=== PATIENT | female | born 1940 | race Caucasian/White ===

== ENCOUNTER → 2016-08-15 | Outpatient (CLI) | payer OTHER ==
[~2016-08-15] MED LIST: ASPEC325 PO; CALCTAB5 PO; ENAL10TA88 PO; GLUCTAB7 PO; LEVO50TA PO; METO1TAB66 PO; POTA-327 PO; ULT50X PO; ZCR10 PO
== END | disposition home or self-care (01) ==
LOC: C.LABSPEC 13:32
PROVIDERS: ATTEND Physician Assistant
DX: N89.8 Other specified noninflammatory disorders of vagina (principal)

== ENCOUNTER 2017-05-01 15:11 | Inpatient (IN) | payer OTHER ==
[~2017-05-01] VITALS: Ht 162.6 cm; Wt 77.5 kg
[~2017-05-01 15:11] MED LIST changes: +METO-452 PO; -METO1TAB66 PO
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
[2017-05-01] MEDS ORDERED: SODIUM CHLORIDE 0.9% 1000ML 1,000 ML IV STA (15:36)
[2017-05-01] MEDS ORDERED: OPTIRAY 320 IV PRN (15:45)
--- NOTE | 2017-05-01 16:12 | DIAGNOSTIC IMAGING REPORT ---
CHEST ONE VIEW PORTABLE CLINICAL HISTORY: CHEST PAIN dyspnea COMPARISON STUDY: 03/23/2014 FINDINGS: Focal parenchymal infiltrate medial aspect left base. Lungs otherwise are clear. Diaphragms are smooth. No evidence for cardiac enlargement. IMPRESSION: Small parenchymal infiltrate medial aspect left base. The above report was generated using voice recognition software. It may contain grammatical, syntax or spelling errors. Electronically signed by: Edenilson Rasmussen M.D. 05/01/2017 4:11 PM Dictated Date/Time: 05/01/2017 4:10 PM
[2017-05-01] MEDS ORDERED: POTA20TA16 PO (16:25)
[2017-05-01] MEDS ORDERED: ASPI81TA28 PO (16:25)
[2017-05-01] MEDS ORDERED: CALC-354 PO (16:25)
[2017-05-01 16:57] LABS: BASO % 0.1 %; BASO ABS # 0.01 K/uL (0-0.2); COMPLETE YES; EOS % 0.4 %; HEMATOCRIT 43.4 % (37-47); IG% 0.4 %; LYMPH % 19.4 %; MEAN CELL VOLUME 93.7 fL (80-100); MEAN CORPUSCULAR HEMOGLOBIN 30.7 pg (25-34); MEAN CORPUSCULAR HGB CONC 32.7 g/dl (32-36); MEAN PLATELET VOLUME 10.1 fL (7.4-10.4); MONO % 11.4 %; NEUT % 68.3 %; PLATELET COUNT 147 K/uL (130-400); RED BLOOD COUNT 4.63 M/uL (4.2-5.4); WHITE BLOOD COUNT 7.72 K/uL (4.8-10.8)
[2017-05-01 17:07] LABS: ALT/SGPT 30 U/L (12-78); AST/SGOT 31 U/L (15-37); BLOOD UREA NITROGEN 18 mg/dl (7-18); CALCIUM 8.6 mg/dl (8.5-10.1); CARBON DIOXIDE 24 mmol/L (21-32); CHLORIDE 106 mmol/L (98-107); CREATININE 0.76 mg/dl (0.60-1.20); GLUCOSE 101 mg/dl (70-99); POTASSIUM 3.7 mmol/L (3.5-5.1); SODIUM 138 mmol/L (136-145)
[2017-05-01 17:13] LABS: ALKALINE PHOSPHATASE 53 U/L (45-117)
--- NOTE | 2017-05-01 17:37 | DIAGNOSTIC IMAGING REPORT ---
(CHEST FOR PE) ANGIO WITH CT DOSE: 504.06 mGy.cm HISTORY: Chest pain dyspnea TECHNIQUE: Multiaxial CT images of the chest were performed following the intravenous administration of contrast to evaluate the pulmonary arteries. Maximal intensity projection images were also obtained. A dose lowering technique was utilized adhering to the principles of ALARA. COMPARISON STUDY: None. FINDINGS: Study is negative for pulmonary embolus. Pulmonary arterial vasculature enhances appropriately. Pulmonary apices are clear. Scattered atelectatic change. Mild left ischemic change thoracic aorta. 6 mm pulmonary nodule right lower lobe transaxial image 117. Focal partial or consolidative infiltrate left base medially and to a lesser extent right posterior gastric angle. IMPRESSION: 1. Study is negative for pulmonary embolus. 2. Parenchymal infiltrate medial left and to a lesser extent medial right base. 3. Possibility of aspiration is a consideration. 4. 6 mm nodular density right lower lobe with a six-month follow-up recommended The above report was generated using voice recognition software. It may contain grammatical, syntax or spelling errors. Electronically signed by: Edenilson Rasmussen M.D. 05/01/2017 5:36 PM Dictated Date/Time: 05/01/2017 5:32 PM
[2017-05-01] MEDS ORDERED: TRAMADOL HCL 50 MG TAB PO STA (17:38)
[2017-05-01] MEDS ORDERED: ACETAMINOPHEN 500 MG TAB PO STA (18:23)
[2017-05-01] MEDS ORDERED: AMPICILLIN/SULBACTAM SOD INJ 3,000 MG in SODIUM CHLORIDE 0.9% 100ML 100 ML IV STA (18:37)
[2017-05-01] MEDS ORDERED: ACETAMINOPHEN 325 MG TAB PO PRN (19:15)
[2017-05-01] MEDS ORDERED: ONDANSETRON INJ 2 MG/ML 2 ML VIAL IV PRN (19:15)
[2017-05-01] MEDS ORDERED: DIPH-437 PO (19:24)
[2017-05-01] MEDS ORDERED: HYDR-5688 PO (19:24)
[2017-05-01] MEDS ORDERED: HYDROCODONE/ACETAMOPHEN 5/325MG TAB PO PRN (19:30)
[2017-05-01 20:05] VITALS: BP 149/83; PULSE 85; TEMP 36.8; O2SAT 95
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
[2017-05-01 20:39] VITALS: BP 149/83; PULSE 85; TEMP 36.8; Ht 162.6 cm; Wt 77.5 kg
[2017-05-01] MEDS: METOPROLOL SUCC 50MG EXT REL TAB PO SCH (21:54)
[2017-05-01 23:15] VITALS: BP 145/83; PULSE 81; TEMP 36.6; O2SAT 95
[2017-05-02] VITALS (8 sets, daily range): BP systolic 131–148; BP diastolic 82–86; PULSE 87–108; TEMP 36.5–36.7; O2SAT 89–97
[2017-05-02] MEDS: AMPICILLIN/SULBACTAM SOD INJ 1,500 MG in SODIUM CHLORIDE 0.9% 100ML 100 ML IV SCH ×4 (02:23→20:58)
[2017-05-02] MEDS: LEVOTHYROXINE 50 MCG TAB PO SCH (05:58)
[2017-05-02 06:05] LABS: HEMATOCRIT 41.9 % (37-47); MEAN CELL VOLUME 92.5 fL (80-100); MEAN CORPUSCULAR HEMOGLOBIN 30.2 pg (25-34); MEAN CORPUSCULAR HGB CONC 32.7 g/dl (32-36); MEAN PLATELET VOLUME 9.7 fL (7.4-10.4); PLATELET COUNT 166 K/uL (130-400); RED BLOOD COUNT 4.53 M/uL (4.2-5.4); WHITE BLOOD COUNT 5.98 K/uL (4.8-10.8)
[2017-05-02 06:36] LABS: BLOOD UREA NITROGEN 18 mg/dl (7-18); BUN/CREATININE RATIO 27.2 (10-20); CALCIUM 8.5 mg/dl (8.5-10.1); CARBON DIOXIDE 27 mmol/L (21-32); CHLORIDE 106 mmol/L (98-107); CREATININE 0.65 mg/dl (0.60-1.20); GLUCOSE 105 mg/dl (70-99); POTASSIUM 3.6 mmol/L (3.5-5.1); SODIUM 139 mmol/L (136-145)
[2017-05-02] MEDS ORDERED: SIMVASTATIN 10 MG TAB PO SCH ×2 (08:00→21:00)
[2017-05-02] MEDS: ASPIRIN 81 MG ECTAB PO SCH (08:02)
[2017-05-02] MEDS: CALCIUM 600MG + VIT D 400 IU TAB PO SCH ×2 (08:02→20:59)
[2017-05-02] MEDS: POTASSIUM CHLORIDE 20 MEQ TABCR PO SCH (08:02)
[2017-05-02] MEDS: ENALAPRIL MALEATE 10 MG TAB PO SCH (08:02)
--- NOTE | 2017-05-02 10:15 | Clinical Documentation Query ---
CLINICAL DOCUMENTATION QUERY 76-y/o female send to ED from outpatient surgical center. In your clinical opinion is this patient being managed for: ( ) Possible Postprocedural Aspiration pneumonia ( ) Not Agree ( ) Other explanation of clinical findings (Please Explain) ( ) Unable to determine (Please Define) ( ) Need to Discuss The medical record reflects the following clinical findings, treatment, and risk factors. Clinical Indicators: Hypoxia 89% on RA, tachycardia 101, CXR and Chest CT showing parenchymal infiltrate medial left and to a lesser extent medial right base. ED impression of aspiration pneumonia. Treatment: IV Unasyn, Chest CT, CXR, O2, Risk Factors: Age, anesthesia/sedation, weak respiratory cough from recent chest trauma and pain. Please clarify and document your clinical opinion in the progress notes and discharge summary. Terms such as "probable", "suspected", "likely", "questionable", "possible", or "still to be ruled out" are acceptable. IF IN AGREEMENT, YOU MUST DOCUMENT ABOVE DIAGNOSTIC STATEMENT IN DAILY PROGRESS NOTES AND DISCHARGE SUMMARY. This document is not part of the patient's record. Thank You, Perfecto Zaman, JESUS [phone]
[2017-05-02] MEDS ORDERED: NURSING VERBAL MED ORDER ONE (10:30)
--- NOTE | 2017-05-02 17:20 | Progress Note ---
Medicine Progress Note Date & Time of Visit: May 02, 2017 at 11:57. Subjective Pt was seen and examined Lying in bed with no distress Pt said that she feels much better this morning She said that pain improved Her saturation dropped to 89% on RA with ambulation this morning She said that when she takes deep breath it causes her to have chest wall tenderness Denies any SOB, palpitation and Dizziness Objective Last 8 Hrs Date Time Temp Pulse Resp B/P (MAP) Pulse Ox O2 Delivery O2 Flow Rate FiO2 05/02/17 14:49 36.5 98 18 148/84 (105) 94 Nasal Cannula 2.0 Physical Exam: General- No acute distress Head- atraumatic Eyes- PERRL, EOMI ENT- oropharynx clear Neck- supple, no JVD Lungs- Poor air entry, No wheezing, No Crackles Heart- regular rhythm Abdomen- normal bowel sounds, soft Extremities-No calf tenderness, LUE in sling, able to move all fingers in UE Neuro- alert, oriented x 3; PERRL, EOMI Skin- warm & dry Laboratory Results: Last 24 Hours Test 05/02/17 05:15 White Blood Count 5.98 K/uL Red Blood Count 4.53 M/uL Hemoglobin 13.7 g/dL Hematocrit 41.9 % Mean Corpuscular Volume 92.5 fL Mean Corpuscular Hemoglobin 30.2 pg Mean Corpuscular Hemoglobin Concent 32.7 g/dl RDW Standard Deviation 45.1 fL RDW Coefficient of Variation 13.4 % Platelet Count 166 K/uL Mean Platelet Volume 9.7 fL Sodium Level 139 mmol/L Potassium Level 3.6 mmol/L Chloride Level 106 mmol/L Carbon Dioxide Level 27 mmol/L Anion Gap 6.0 mmol/L Blood Urea Nitrogen 18 mg/dl Creatinine 0.65 mg/dl Est Creatinine Clear Calc Drug Dose 71.9 ml/min Estimated GFR () 98.6 Estimated GFR (Non- 85.0 BUN/Creatinine Ratio 27.2 Random Glucose 105 mg/dl Calcium Level 8.5 mg/dl Troponin I < 0.015 ng/ml Assessment & Plan ACUTE HYPOXIC RESPIRATORY FAILURE Had outpatient surgery done at [facility] Hypoxia post procedure CT chest showed parenchymal infiltrate medial left and to a lesser extent medial right base. Mostly aspiration pneumonia Denies any symptoms No leukocytosis Continue Unasyn for now incentive spirometer Continue oxygen supplement LEFT DISTAL RADIUS FRACTURE S/P REPAIR pain control Follow up with ortho Continue wearing sling LBBB When compared with previous EKG done by her cardiology LBBB was present Had a Lexiscan nuclear stress test done in 10/09 by her Cardiology that showed No significant ST-T wave changes Asymptomatic Troponin negativex2 HTN BP controlled continue enalapril and metoprolol HLD On statin HYPOTHYROIDISM On levothyroxine PULMONARY NODULE CT chest showed 6 mm nodular density right lower lobe Will need follow up CT in 6 months DVT PROPHYLAXIS SCDs given recent procedure DISPOSITION Will discharge home tomorrow Current Inpatient Medications: Current Inpatient Medications Medications (Trade) Dose Ordered Sig/Eli Route Start Time Stop Time Status Last Admin Dose Admin Ioversol (Optiray 320) 100 ml UD PRN IV 05/01/17 15:45 05/05/17 15:44 Acetaminophen (Tylenol Tab) 650 mg Q4H PRN PO 05/01/17 19:15 05/31/17 19:14 Ondansetron HCl (Zofran Inj) 4 mg Q6H PRN IV 05/01/17 19:15 05/31/17 19:14 Ampicillin Sodium/ Sulbactam Sodium 1500 mg/Sodium Chloride 104 ml @ 200 mls/hr Q6H IV 05/02/17 02:00 05/09/17 01:59 05/02/17 14:33 200 MLS/HR Aspirin (Ecotrin Tab) 81 mg DAILY PO 05/02/17 08:00 06/01/17 08:59 05/02/17 08:02 81 MG Enalapril Maleate (Vasotec Tab) 10 mg DAILY PO 05/02/17 08:00 06/01/17 08:59 05/02/17 08:02 10 MG Acetaminophen/ Hydrocodone Bitart ([place] 5/325 Tab) 1 tab Q6H PRN PO 05/01/17 19:30 05/15/17 19:29 05/02/17 02:33 1 TAB Levothyroxine Sodium (Synthroid Tab) 50 mcg DAILYBB PO 05/02/17 06:30 06/01/17 06:29 05/02/17 05:58 50 MCG Metoprolol Succinate (Toprol Xl Tab) 50 mg HS PO 05/01/17 21:00 05/31/17 20:59 05/01/17 21:54 50 MG Potassium Chloride (Klor-Con Tab) 20 meq DAILY PO 05/02/17 08:00 06/01/17 08:59 05/02/17 08:02 20 MEQ Calcium/Vitamin D (Caltrate Plus Tab) 1 tab BID PO 05/01/17 20:00 05/31/17 19:59 05/02/17 08:02 1 TAB Diphenhydramine HCl (Benadryl Cap) 25 mg HS PRN PO 05/01/17 19:30 05/31/17 19:29 05/01/17 21:53 25 MG Simvastatin (Zocor Tab) 10 mg HS PO 05/02/17 21:00 06/01/17 20:59
[2017-05-02] MEDS: METOPROLOL SUCC 50MG EXT REL TAB PO SCH (21:02)
[2017-05-03] MEDS: AMPICILLIN/SULBACTAM SOD INJ 1,500 MG in SODIUM CHLORIDE 0.9% 100ML 100 ML IV SCH ×2 (03:22→07:57)
[2017-05-03] MEDS: LEVOTHYROXINE 50 MCG TAB PO SCH (05:27)
[2017-05-03 07:22] VITALS: BP 131/85; PULSE 71; TEMP 36.7; O2SAT 93
[2017-05-03] MEDS: CALCIUM 600MG + VIT D 400 IU TAB PO SCH (07:57)
[2017-05-03] MEDS: ENALAPRIL MALEATE 10 MG TAB PO SCH (07:57)
[2017-05-03] MEDS: ASPIRIN 81 MG ECTAB PO SCH (07:57)
[2017-05-03] MEDS: POTASSIUM CHLORIDE 20 MEQ TABCR PO SCH (07:57)
[2017-05-03 08:00] VITALS: O2SAT 93
[2017-05-03] MEDS ORDERED: AMOXICILLIN/CLAVULANATE TAB 875 MG TAB PO ONE (11:28)
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
[2017-05-03] MEDS ORDERED: AMOX1TAB43 PO (11:38)
--- NOTE | 2017-05-03 11:44 | Discharge Instructions ---
Discharge Instructions Date of Service May 03, 2017. Admission Reason for Admission: Hypoxia Discharge Discharge Diagnosis / Problem: ACUTE HYPOXIC RESPIRATORY FAILURE, LUNG NODULE, LEFT DISTAL RADIUS FRACTURE Discharge Goals Goal(s): Decrease discomfort, Improve function, Improve disease control Activity Recommendations Activity Limitations: resume your previous activity ( TOLERATED) . Instructions / Follow-Up Instructions / Follow-Up Please call your primary care provider Francis COLLINS to schedule follow up appointment within 1 week [facility] the left distal radius fracture Continue wearing sling Complete course of antibiotic with Augmentin Current Hospital Diet Patient's current hospital diet: Regular Diet Discharge Diet Recommended Diet: AHA Diet (Heart Healthy) Pending Studies Studies pending at discharge: no Medical Emergencies . Who to Call and When: Medical Emergencies: If at any time you feel your situation is an emergency, please call 911 immediately. . Non-Emergent Contact Non-Emergency issues call your: Primary Care Provider Call Non-Emergent contact if: temperature is above 100.5, you have any medication questions . . "Provider Documentation" section prepared by Frank Sales. . VTE Core Measure Inpt VTE Proph given/why not?: SCD's
[2017-05-03 12:30] VITALS: BP 131/85; PULSE 71; TEMP 36.7; O2SAT 93
[2017-05-03] MEDS ORDERED: AMOXICILLIN/CLAVULANATE TAB 875 MG TAB PO SCH (17:00)
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
== END 2017-05-03 13:15 | disposition home or self-care (01) | DRG 177 ==
LOC: EDBD 15:11 → C.EDB 15:12 → C.4E 19:13 → ENRESERV 19:24
PROVIDERS: ADMIT Internal Medicine; ATTEND Internal Medicine
DX: J69.0 Pneumonitis due to inhalation of food and vomit (principal); J96.01 Acute respiratory failure with hypoxia; S52.502A Unspecified fracture of the lower end of left radius, initial encounter for closed fracture; I10 Essential (primary) hypertension; E78.5 Hyperlipidemia, unspecified; E03.9 Hypothyroidism, unspecified; I44.7 Left bundle-branch block, unspecified; V89.2XXA Person injured in unspecified motor-vehicle accident, traffic, initial encounter; Z79.82 Long term (current) use of aspirin; Z79.899 Other long term (current) drug therapy; Z98.890 Other specified postprocedural states